=== PATIENT | male | born 1985 | race American Indian/Alaskan Native ===

== ENCOUNTER 2016-09-16 11:12 | Emergency (ER) | payer OTHER ==
[2016-09-16 12:14] VITALS: BP 122/82
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
[2016-09-16] MEDS ORDERED: MOTRIN PO ONE (16:19)
== END 2016-09-16 17:07 | disposition home or self-care (01) ==
LOC: ED 11:12
DX: M54.2 Cervicalgia (principal); M54.9 Dorsalgia, unspecified; V89.2XXA Person injured in unspecified motor-vehicle accident, traffic, initial encounter; Y92.488 Other paved roadways as the place of occurrence of the external cause; Y93.89 Activity, other specified; Y99.8 Other external cause status
CPT/HCPCS: 99282